=== PATIENT | male | born 1985 | race Caucasian/White ===

== ENCOUNTER 2022-07-13 18:07 | Emergency (ER) | payer OTHER, BC ==
[~2022-07-13] VITALS: Ht 185.4 cm; Wt 108.9 kg
[~2022-07-13 18:07] MED LIST: HYDACE5 PO; SULTRIDS PO
[2022-07-13] MEDS ORDERED: SYMBICORT 160-4.6 GM (18:30)
[2022-07-13] MEDS ORDERED: Percocet 5-3251 EACH PO (22:59)
[2022-07-13] MEDS ORDERED: IBUP800 PO (22:59)
== END 2022-07-13 23:13 | disposition home or self-care (01) ==
LOC: ER 18:07
DX: S42.022A Displaced fracture of shaft of left clavicle, initial encounter for closed fracture (principal); S06.0X0A Concussion without loss of consciousness, initial encounter; S20.412A Abrasion of left back wall of thorax, initial encounter; S40.812A Abrasion of left upper arm, initial encounter; S60.512A Abrasion of left hand, initial encounter; V86.59XA Driver of other special all-terrain or other off-road motor vehicle injured in nontraffic accident, initial encounter; G93.0 Cerebral cysts; Z88.0 Allergy status to penicillin; Z79.899 Other long term (current) drug therapy
CPT/HCPCS: 70450; 73000; 90471; 90714; 96372; 99284-25; A9270; J1885

== ENCOUNTER 2022-07-18 13:30 | Day surgery (SDC) | payer OTHER, BC ==
[~2022-07-18] VITALS: Ht 185.4 cm; Wt 110.2 kg
[~2022-07-18 13:30] MED LIST changes: +IBUP800 PO; +Percocet 5-3251 EACH PO; +SYMBICORT 160-4.6 GM
[2022-07-18] MEDS ORDERED: ALLEGRA ALLERG180 MG PO (14:15)
[2022-07-18] MEDS ORDERED: ALBU2.5V5 INH (14:15)
--- NOTE | 2022-07-18 14:27 | NUR ---
Ambulatory in Day Surgery. Patient confirms NPO status and agrees with scheduled surgery. Lungs clear T/O to Auscultation. Patient reports completing Chlorhexadine shower X1 prior to admission to hospital. Pre-Op teaching done. Pt verbalizes understanding. Patient States Post-Procedure ride home has been arranged.
--- NOTE | 2022-07-18 15:33 | NUR ---
07/18/22 1533 Joce Shaw PT CAME TO OR WITH LARGE YELLOWING BRUISE ON LEFT UPPER CHEST. SCRAPES ON UPPER LEFT SHOULDER AND HAND.
--- NOTE | 2022-07-18 19:37 | NUR ---
PT DISCHARGED. PT AND EDUCATED, STATED UNDERSTANDING OF ALL EDUCATION. PT TOLERATING PO INTAKE. VSS. DISCHARGED VIA WHEELCHAIR TO CAR.
== END 2022-07-18 22:54 | disposition home or self-care (01) ==
LOC: ORD 13:30 → ORSCMMR 13:31 → ORD 22:54
PROVIDERS: Orthopaedic Surgery
PROC: 0PSB04Z Reposition Left Clavicle with Internal Fixation Device, Open Approach (ICD-10-PCS; principal; 2022-07-18 13:30)
DX: S42.022A Displaced fracture of shaft of left clavicle, initial encounter for closed fracture (principal); V89.2XXA Person injured in unspecified motor-vehicle accident, traffic, initial encounter; J45.909 Unspecified asthma, uncomplicated; F17.200 Nicotine dependence, unspecified, uncomplicated; Z88.0 Allergy status to penicillin; K21.9 Gastro-esophageal reflux disease without esophagitis; I10 Essential (primary) hypertension
CPT/HCPCS: A9270; C1713; J0171; J0735; J1100; J1885; J2250; J2405; J2704; J2765; J2795; J3010; J3370; J7120

== ENCOUNTER 2025-03-21 06:11 | Day surgery (SDC) | payer BC ==
[~2025-03-21] VITALS: Ht 185.4 cm; Wt 111.7 kg
[~2025-03-21 06:11] MED LIST changes: +ALBU2.5V5 INH; +ALLEGRA ALLERG180 MG PO
[2025-03-21] MEDS ORDERED: EPINEPhrine HCl 1 MG/ML 1ML Amp ONE (06:53)
[2025-03-21] MEDS ORDERED: Ropivacaine 0.5% HCL/PF 5 MG/ML 30ML Vial ONE (06:53)
[2025-03-21] MEDS ORDERED: Midazolam HCl 1MG / ML 2ML Vial ONE (06:57)
[2025-03-21] MEDS ORDERED: propofoL 20 ML IV ONE ×3 (06:57→08:38)
[2025-03-21] MEDS ORDERED: FentaNYL Citrate 50 MCG/ML 2 ML Injection ONE (06:57)
[2025-03-21] MEDS ORDERED: Lactated Ringer's 1,000 ML IV ONE ×2 (07:14→07:48)
[2025-03-21] MEDS ORDERED: CeFAZolin Sodium 2,000 MG VIAL ONE (07:15)
--- NOTE | 2025-03-21 07:37 | NUR ---
03/21/25 0737 TONNY DOTSON [id number] TIMEOUT FOR NERVE BLOCK PROCEDURE BEDSIDE WITH FRIDA RANDLE RN, AND PT. SPO2 MONITORED T/O PROCEDURE, O2 REMAINED WNL ON 2L NC.
[2025-03-21] MEDS ORDERED: Ondansetron HCl 2 MG / ML 2ML Vial ONE (08:38)
[2025-03-21] MEDS ORDERED: Dexamethasone Sod Phos 10 MG/ML 1ML VIAL ONE (08:38)
[2025-03-21] MEDS ORDERED: Ketorolac Tromethamine 30mg Vial ONE (08:38)
--- NOTE | 2025-03-21 09:09 | NUR ---
03/21/25 0909 Portia Mccormick PRP INJECTED FROM FIELD INTO OPSITE @[id number]
--- NOTE | 2025-03-21 09:26 | NUR ---
03/21/25 0926 Jolie Dominique REPORT RECEIVED FROM DION AND RN. PT DROWSY. VSS. LEFT FOOT CAP REFILL <3 SECONDS. LEFT TOES PINK, WARM AND DRY.
[2025-03-21 09:57] VITALS: BP 133/96
--- NOTE | 2025-03-21 09:57 | NUR ---
03/21/25 0973 Jolie Dominique SPOKE WITH DR VAZQUEZ, CLARIFIED ORDERS REGARDING SPLINT AND BOOT. BROUGHT TO BEDSIDE. PT IN RECLINER, DENIES PAIN OR NAUSEA. TOLERATING WATER WELL.
== END 2025-03-21 10:25 | disposition home or self-care (01) ==
LOC: ORSCSDS 06:11
PROVIDERS: Podiatrist Foot & Ankle Surgery
PROC: 0SBG4ZZ Excision of Left Ankle Joint, Percutaneous Endoscopic Approach (ICD-10-PCS; principal; 2025-03-21 07:30)
DX: M25.872 Other specified joint disorders, left ankle and foot (principal); M65.972 Unspecified synovitis and tenosynovitis, left ankle and foot; M89.9 Disorder of bone, unspecified; F17.210 Nicotine dependence, cigarettes, uncomplicated; J45.909 Unspecified asthma, uncomplicated; Z79.899 Other long term (current) drug therapy; E66.9 Obesity, unspecified; Z68.32 Body mass index [BMI] 32.0-32.9, adult
CPT/HCPCS: 73610; 88305; 88311; J0171; J0690; J1100; J1885; J2250; J2405; J2704; J2795; J3010; J7120